=== PATIENT | female | born 1980 | race African-American/Black ===

== ENCOUNTER 2022-08-10 08:42 | Emergency (ER) | payer MEDICAID ==
[~2022-08-10] VITALS: Ht 172.7 cm; Wt 117.9 kg
[2022-08-10] MEDS ORDERED: KETOROLAC 60MG/2ML VIAL IM ONE (09:45)
[2022-08-10] MEDS ORDERED: ACETAMINOPHEN 325MG TABLET PO ONE (09:45)
[2022-08-10] MEDS: METHOCARBAMOL 750MG TABLET PO SCH ×2 (09:45→10:42)
[2022-08-10 10:19] LABS: BASOPHILS % 0.4 % (0.0-2.0); EOSINOPHILS % 0.7 % (0.0-5.0); HEMATOCRIT. 33.2 % (36.0-48.0); LYMPHOCYTES % 28.4 % (20.0-50.0); MEAN CORPUSCULAR HEMOGLOBIN 29.7 pg (28.0-32.0); MEAN CORPUSCULAR VOLUME 89.7 fL (81.0-99.0); MEAN PLATELET VOLUME 8.4 fl (7.4-10.4); MONOCYTES % 5.5 % (2.0-8.0); PLATELET 383 x1000/uL (130-400); RED CELL DISTRIBUTION WIDTH 15.6 % (11.6-14.6)
[2022-08-10 10:26] LABS: CHLORIDE 107 mEq/L (98-107)
[2022-08-10 10:29] LABS: HCG SCREEN NEGATIVE
[2022-08-10 10:41] VITALS: BP 122/72
[2022-08-10] MEDS ORDERED: PROCHLORPERAZINE 10MG/2ML VIAL IM ONE (11:30)
[2022-08-10 11:57] LABS: CLARITY URINE CLEAR (CLEAR); COLOR URINE YELLOW (YELLOW); KETONES URINE NEGATIVE (NEGATIVE); LEUKOCYTE ESTERASE URINE NEGATIVE (NEGATIVE); NITRITE URINE NEGATIVE (NEGATIVE); OCCULT BLOOD URINE NEGATIVE (NEGATIVE); PROTEIN URINE NEGATIVE (NEGATIVE); SPECIFIC GRAVITY URINE 1.008 (1.005-1.030); UROBILINOGEN URINE 0.2 E.U./dL (0.2-1.0)
[2022-08-10] MEDS ORDERED: TOPUD PO (12:54)
[2022-08-10] MEDS ORDERED: LIDO1ADH23 TP (12:54)
[2022-08-10] MEDS ORDERED: METH-653 MT (12:54)
[2022-08-10] MEDS ORDERED: IBUP-2028 MT (12:54)
== END 2022-08-10 13:23 | disposition home or self-care (01) ==
LOC: ER 08:42
DX: M54.50 Low back pain, unspecified (principal); R51.9 Headache, unspecified; I49.9 Cardiac arrhythmia, unspecified
CPT/HCPCS: 36415; 70450; 71045; 74176; 80053; 81003; 81025; 83690; 84703; 85025; 93005; 96372; 99285; J0780; J1885